=== PATIENT | male | born 1950 | race Caucasian/White ===

== ENCOUNTER 2018-07-08 10:01 | Emergency (ER) | payer MEDICARE ==
[2018-07-08 10:17] VITALS: BP 154/102
--- NOTE | 2018-07-08 10:39 | ED Physician Documentation ---
General Adult - HISTORIAN Historian: patient - HPI Stated Complaint: congestion Chief Complaint: Cough/ Upper Respiratory Onset: days ago (6) Timing: still present Severity: mild Further Comments: yes (cough congestion and "cold" for about 7 days - for 3 days initally he did try OTC meds (nyquil and dayquil) with no improvement . His PCP could not see him until Tuesday and today he wants to make sure this does not travel to his chest. No fever) Last known Well Code/Unknown Code: Unknown - ROS CONST: denies: fever EYES/ENT: nasal drainage, nasal congestion. denies: sore throat CVS/RESP: cough. denies: chest pain, shortness of breath GI/: none MS/SKIN/LYMPH: none NEURO/PSYCH: headache - PAST HX Past History: hypertension Allergies/Adverse Reactions: Allergies Allergy/AdvReac Type Severity Reaction Status Date / Time No Known Allergies Allergy Verified 07/08/18 10:17 Home Medications: Ambulatory Orders Medication Instructions Recorded Atorvastatin Calcium 80 mg PO DAILY 07/08/18 Lisinopril 20 mg PO BID 07/08/18 Metoprolol Tartrate [Lopressor] 25 mg PO BID 07/08/18 - SOCIAL HX Smoking History: non-smoker Alcohol Use: none Drug Use: none - FAMILY HX Family History: No - VITAL SIGNS Vital Signs: Vital Signs Temp Pulse Resp BP Pulse Ox 98.7 F 57 L 19 154/102 95 07/08/18 10:11 07/08/18 10:11 07/08/18 10:11 07/08/18 10:11 07/08/18 10:11 - REVIEWED ASSESSMENTS Nursing Assessment Reviewed: Yes Vitals Reviewed: Yes General Adult Physical Exam - PHYSICAL EXAM GENERAL APPEARANCE: no distress EENT: eye inspection normal, ENT inspection normal, pharynx normal, no signs of dehydration, other (no sinus pain with palpation ) RESPIRATORY: no resp distress, chest non-tender, breath sounds normal CVS: reg rate & rhythm, heart sounds normal, equal pulses ABDOMEN: soft, no distension BACK: normal inspection, no CVA tenderness SKIN: warm/dry, normal color EXTREMITIES: non-tender NEURO: oriented X3 Discharge Clincal Impression: Viral upper respiratory tract infection with cough Referrals: eRyna Gabriel FNP [Primary Care Provider] - 2 Days Comments: 1. Medrol dose pack - as directed 2. Flonase 1 spray in each nostril daily 3. Zyrtec take 1 by mouth daily 4. Tessalon Pearls - take 1 by mouth every 8 hours as needed for cough 5. Increase fluids 6. Keep appt with PCP 7. Return to ER for any increasing concerns Condition: Stable Disposition: 01 HOME, SELF-CARE Decision to Admit: NO Date of Decison to Admit: 07/08/18 Decision Time: 10:43
== END 2018-07-08 10:46 | disposition home or self-care (01) ==
LOC: ED 10:01
DX: J06.9 Acute upper respiratory infection, unspecified (principal); R05 Cough
CPT/HCPCS: 99281; 99282